=== PATIENT | female | born 1965 | race Caucasian/White ===

== ENCOUNTER 2023-01-17 11:27 | Emergency (ER) | payer OTHER ==
[2023-01-17 11:37] VITALS: BP 132/86; PULSE 80; RESP 18; TEMP 97.7; BMI 25.2
== END 2023-01-17 14:18 | disposition home or self-care (01) ==
LOC: JERFT 11:27
DX: M79.672 Pain in left foot (principal); M25.522 Pain in left elbow; W18.30XA Fall on same level, unspecified, initial encounter; Y93.K1 Activity, walking an animal
CPT/HCPCS: 73070-TC-LT-FY; 73630-TC-LT; 99284-25